=== PATIENT | female | born 1980 | race Caucasian/White ===

== ENCOUNTER 2020-11-01 18:25 | Emergency (ER) | payer BC, SELFPAY ==
--- NOTE | ~2020-11-01 | XR_ITS ---
EXAMINATION: XR chest 2V DATE: 11/01/2020 18:50 INDICATION: Cough and shortness of breath. TECHNIQUE: Frontal and lateral views of the chest were obtained. COMPARISON: None. FINDINGS: The chest demonstrates clear lungs without pneumonia, pleural effusion, or pneumothorax. Th e heart size is normal. IMPRESSION: 1. No acute cardiopulmonary disease. Reviewed, dictated and finalized at location A.
[2020-11-01 18:30] VITALS: BP 134/81; PULSE 90; RESP 20; TEMP 36.9; O2SAT 95
--- NOTE | 2020-11-01 19:12 | ED.SOB ---
HPI - SOB/Dyspnea General Chief Complaint: Shortness of Breath/Dyspnea Stated Complaint: cough Source: patient and family Mode of arrival: ambulatory Limitations: no limitations History of Present Illness HPI Narrative: started last week with URLisa sxs. Pt was seen by PCP and dx with sinus infection and given Rx for doxycycline. She sates since then it has moved to her chest. She feels mildly SOB, but really is struggling with a deep breath, because her cough is so pronounced, MD elicited complaint: shortness of breath Pertinent past history: COPD Context: recent illness Timing: constant Severity: mild Exacerbating factors: nothing and exertion Relieving factors: nothing Associated symptoms: denies other symptoms, cough, wheezing and sputum production Related Data Home oxygen amount: none Home Medications Medication Instructions Recorded Confirmed doxycycline hyclate 100 mg PO BID 11/01/20 11/01/20 duloxetine 20 mg PO BID 11/01/20 11/01/20 fluticasone propionate [Flonase] 1 spray INTRANASAL BID 11/01/20 11/01/20 montelukast 10 mg PO HS 11/01/20 11/01/20 Allergies Allergy/AdvReac Type Severity Reaction Status Date / Time erythromycin base Allergy Hives Verified 11/01/20 18:40 Penicillins Allergy Hives Verified 11/01/20 18:40 Sulfa (Sulfonamide Allergy Hives Verified 11/01/20 18:40 Antibiotics) Review of Systems Review of Systems: All systems reviewed & are unremarkable except as noted in HPI and below Constitutional: Constitutional: Reports no additional constitutional complaints Eyes: Eyes: Reports no additional eye complaints ENT: Reports system reviewed and no additional complaints, except as documented Cardiovascular: Cardiovascular: Reports no additional cardiovascular complaints Respiratory: Respiratory: Reports cough, Reports dyspnea and Reports wheezing Gastrointestinal: Gastrointestinal: Reports no additional gastrointestinal complaints Musculoskeletal: Musculoskeletal: Reports as per HPI Integumentary/Breasts: Skin/Breast: Reports as per HPI Neurologic: Reports as per HPI Psychiatric: Psychiatric: Reports as per HPI Endocrine: Endocrine: Reports as per HPI Hematologic/Lymphatic: Hematologic/Lymphatic: Reports as per HPI Allergic/Immunologic: Allergic/Immunologic: Reports as per HPI [facility] Social History Social History (Updated 11/01/20 @ 19:16 by Carie Abdalla MD) Smoking status: Current every day smoker Alcohol intake: current Substance use: never Exam Const: General: no acute distress and alert Orientation/consciousness: patient oriented x3 HENMT: Head: normal to inspection Eyes: Conjunctivae: conjunctivae normal Pupils: Equal, round and reactive pupils present Neck: Neck: normal visual inspection Chest: Chest palpation & inspection: normal inspection of the chest Resp: Effort & Inspection: normal respiratory effort Auscultation: wheezes Cardio: Rate: regular rate Rhythm: regular rhythm GI: GI Palp: Yes Soft to palpation and No Tenderness to palpation present (GI) : General: Yes no CVA tenderness Skin: General skin exam: normal color Rashes: no rashes Neuro: General: patient oriented x3 and moves all extremities Extrem: General: normal to inspection Psych: Mental Status: mental status grossly normal Affect: normal affect Course Vital Signs Vital signs: Vital Signs Temperature 36.9 C 11/01/20 18:30 Pulse Rate 90 11/01/20 18:30 Respiratory Rate 20 11/01/20 18:30 Blood Pressure 134/81 11/01/20 18:30 Pulse Oximetry 95 11/01/20 18:30 Temperature 36.9 C 11/01/20 18:30 Pulse Rate 90 11/01/20 18:30 Respiratory Rate 20 11/01/20 18:30 Blood Pressure 134/81 11/01/20 18:30 Pulse Oximetry 95 11/01/20 18:30 Discharge Plan Discharge Clinical Impression: Bronchitis Patient Disposition: Home, Self-Care Condition: Stable Instructions: Antibiotic Form, Acute Bronchitis (ED) Prescr
[2020-11-01 19:15] VITALS: RESP 16
[2020-11-01] MEDS: ALBUTEROL SULFATE (*SP) INHALER 2 PUFF INHALATION (19:16)
[2020-11-01 19:27] VITALS: BP 134/81; PULSE 87; RESP 20; TEMP 36.9; O2SAT 95
== END 2020-11-01 19:33 | disposition home or self-care (01) ==
PROVIDERS: Emergency Provider Emergency Medicine
DX: J40 Bronchitis, not specified as acute or chronic (principal)
CPT/HCPCS: 71046; 94640; 99283; A9270

== ENCOUNTER 2025-05-30 15:03 | Emergency (ER) | payer OTHER, SELFPAY ==
--- OUTSIDE RECORDS SUMMARY | 2025-01-25 04:00 | XMS_ITS ---
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 Role Phone PRITESH RASCON Primary Care Provider PALOMO Rubio Unavailable [phone] Medications Medication SIG (Take, Route, Frequency, Duration) Notes Start Date End Date Status busPIRone HCl 10 MG Oral; Duration: 30 Days Active buPROPion HCl ER (XL) 300 MG TAKE 1 TABL ET BY MOUTH ONCE DAILY IN THE MORNING Oral; Duration: 90 Days Active DULoxetine HCl 20 MG Oral; Duration: 90 Days Active Cefdinir 300 MG Oral; Duration: 10 Days Active DULoxetine HCl 60 MG Oral; Duration: 90 Days Active Nitrofurantoin Monohyd Macro 100 MG Oral; Duration: 5 Days Activ e Montelukast Sodium 10 MG Oral; Duration: 90 Days Active cloNIDine HCl 0.3 MG Oral; Duration: 90 Days Active Fluconazole 150 MG Oral; Duration: 3 Days Active Encounters Encounter Location Date Provider Diagnosis [facility] OUT[facility]IENT [address] [place] [address] 01/25/2025 PALOMO BARRIENTOS Plan Of Treatment No Information Progress Notes * BRANDEE DAVEY DDOB:1980 (45 yo F)Acc No.[id number]:01/25/2025 Patient: BRANDEE CARMEN Provider: Beau Barrientos DPM :1980 A ge:44 Y S ex:Female Date:01/25/2025 Address:[address] [place], [place] [id number] Pcp:PRITESH RASCON Subjective: * Chief Complaints: * * Medical History: * Medications: T aking Fluconazole 150 MG Tablet Oral , Taking Montelukast Sodium 10 MG Tablet Oral , Taking Nitrofurantoin Monohyd Macro 100 MG Capsule Oral , Taking cloNIDine HCl 0.3 MG Tablet Oral , Taking busPIRone HCl 10 MG Tablet Oral , Taking buPROPion HCl ER (XL) 300 MG Tablet Extended Release 24 Hour TAKE 1 TABLET BY MOUTH ONCE DAILY IN THE MORNING Oral , Taking Cefdinir 300 MG Capsule Oral , Taking DULoxetine HCl 20 MG Capsule Delayed Release Particles Oral , Taking DULoxetine HCl 60 MG Capsule Delayed Release Particles Oral Objective: * Vitals: Assessment: Plan: * Treatment: * Billing Information: * Visit Code: * Procedure Codes: * Electronic signature of LOLA BARRIENTOS DPM on 05/30/2025 at 03:05 PM CDT Sign off status: Pending * Provider: Beau Barrientos DPM Date: 0 01/25/2025 Generated for Vidal vidales/Philippe/Go on: 1 03:05 PM CDT
--- NOTE | ~2025-05-30 | CT_ITS ---
EXAMINATION: CT brain wo con COMPARISON: None HISTORY: Anterior headache, nausea x1 day. NKI TECHNIQUE: Axial images were obtained through the brain without IV contrast. CT scan performed using dose optimization techniques including the following automated exposure control; adjustment of mA and/or kV; use of iterative reconstruction technique. Automatic exposure control was used to reduce radiation dose. Permanent radiation dose record is archived to PACS. FINDINGS: No acute infarct or parenchymal hemorrhage. No abnormal mass or mass effect. No midline shift. No extra-axial fluid collections. No hydrocephalus. . Mastoid air cells unremarkable. Sinuses and orbits unremarkable. No acute fracture. No significant facial or scalp soft tissue swelling evident. No radiopaque foreign body is seen. Impression: 1.No acute intracranial abnormality. Reviewed, dictated and finalized at location P. Impression: 1.No acute intracranial abnormality.
[2025-05-30 15:05] VITALS: BP 147/99; PULSE 80; RESP 16; TEMP 36.4; O2SAT 100
--- OUTSIDE RECORDS SUMMARY | 2025-05-30 15:05 | XMS_ITS | Patient Health Record ---
Author Organization [facility] Address [address] [place] [address] Care Team Providers Care Ophthalmic Surgical Assistant Name Role Phone PRITESH RASCON Primary Care Provider PALOMO Rubio Unavailable [phone] Allergies Allergen (clinical drug ingredient) Drug/Non Drug Allergy documented on EMR Reaction Allergy Type Onset Date Status amoxicillin Amoxicillin Unknown Drug Allergy Act christine erythromycin Erythromycin Unknown Drug Allergy A ctive Penicillin Unknown Drug Allergy Active Substance with sulfonamide structure and antibacterial mechanism of action (substance) Sulfa Antibiotics Unknown Drug Allergy Active Reason For Referral No Information Medications Medication SIG (Take, Route, Frequency, Duration) Notes Start Date End Date Status Fluconazole 150 MG Oral; Duration: 3 Days Active HYDROcodone-Acetaminophen 5-325 MG 1 tablet as needed Orally every 6 hrs Dx Post Op 01/25/2025 Active DULoxetine HCl 60 MG Oral; Duration: 90 Days Active DULoxetine HCl 20 MG Oral; Duration: 90 Days Active Cefdinir 300 MG Oral; Duration: 10 Days Active buPROPion HCl ER (XL) 300 MG TAKE 1 TABLET BY MOUTH ONCE DAILY IN THE MORNING Oral; Duration: 90 Days Active busPIRone HCl 10 MG Oral; Duration: 30 Days Active cloNIDine HCl 0.3 MG Oral; Duration: 90 Days Active Nitrofurantoin Monohyd Macro 100 MG Oral; Duration: 5 Days Active Montelukast Sodium 10 MG Oral; Duration: 90 Days Active Social History Tobacco Use: Social History Observation Description Date Details (start date - stop date) Never Smoker NA - NA Tobacco Control (Standard) Question Answer Notes Tobacco use: Nonsmoker Vital Signs Heart Rate 110 /min 02/15/2025 Blood pressure diastolic 79 mm Hg 02/15/2025 Height-cm 165.1 cm 02/15/2025 Weight-kg 79.38 kg 02/15/2025 Height 65 in 02/15/2025 Blood pressure systolic 117 mm Hg 02/15/2025 Weight 175 lbs 02/15/2025 BMI 29.12 kg/m2 02/15/2025 Encounters Encounter Location Date Provider Diagnosis [facility] OUTPATIENT [id number] [place] [phone] 01/25/2025 PALOMO BARRIENTOS [facility] [address] [place] [address] 12/09/2024 PALOMO BARRIENTOS Neoplasm of unspecified behavior of bone, soft tissue, and skin D49.2 [facility] [address] [place] [address] 01/15/2025 PALOMO BARRIENTOS Neoplasm of unspecified behavior of bone, soft tissue, and skin 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 We discussed treatment options including observation, supportive care and surgical options of aspiration or excision. We informed the patient that 50% of cysts will resolve spontaneously and 50% of surgically treated ganglion will reoccur. Discussed the lesion. Discussed the lesion may be a ganglion, or more likely could be a mass such as a fibroma. Discussed treatment options. She had X-rays at [facility] which did not show anything distinct in the area. We will schedule for excision. Discussed post operative period, pt understands. 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 We discussed treatment options including observation, supportive care and surgical options of aspiration or excision. We informed the patient that 50% of cysts will resolve spontaneously and 50% of surgically treated ganglion will reoccur. Discussed the lesion. Discussed the lesion may be a ganglion, or more likely could be a mass such as a fibroma. Discussed excision. We discussed the procedure in detail, including all risks, benefits and potential complications. We discussed the perioperative and postoperative period. I answered all questions, and no guarantees were made. The patient elects to proceed with procedure. The consent was explained and signed. We discussed post operative care and dispensed instructional sheet. The patient is to call with any questions. 02/01/2025 Aftercare following surgery (ICD-10 - Z48.89) We discussed the patient's current status and their postoperative course. Signs and symptoms of infection were discussed with the patient. The patient is to contact the office immediately if they believe that they have an infection, or have any other problem or concern. Expected post-operative course explained A dry dressing was applied. The patient was instructed to leave the dressing intact. The patient was instructed to remain in their CAM boot / surgical shoe. 02/15/2025 Aftercare following surgery (ICD-10 - Z48.89) We discussed the patient's current status and their postoperative course. Signs and symptoms of infection were discussed with the patient. The patient is to contact the office immediately if they believe that they have an infection, or have any other problem or concern. Expected post-operative course explained The suture site was prepped with alcohol. The sutures were removed without incident. Steri strips and a small dressing was applied. The patient was instructed to leave the area dry for the next few days, and contact the office if they still have drainage in a week. The patient may advance to a regular shoe. They should advance their activity slowly as tolerated. Plan Of Treatment No Information Insurance Providers Payer Name Payer Address Payer Phone Subscriber Number Group Number Insured Name Patient Relationship to Insured Coverage Start Date Coverage End Date Errand Boy Delivery Business Plan [address] [place] [id number] BRANDEE DAVEY Self - patient is the insured [facility] [address] [place], [place] [id number] BRANDEE DAVEY Self - patient is the insured Medical (General) History Medical History History ICD Code anxiety
--- OUTSIDE RECORDS SUMMARY | 2025-05-30 15:05 | XMS_ITS | Encounter Summary ---
Author Organization [facility] Address [address] [place] [address] Care Team Providers Care Contact Officer Name Role Phone Ju Barragan MD Primary Care Provider Juan José Tavarez MD Unavailable [phone] Encounter Details Date Type Department Care Team ([facility] Contact Info) Description 11/17/2015 Abstract [facility] AT [address] [address] Juan José Tavarez MD [address] [place] [address] Social History Tobacco Use Types Packs/Day Years Used Date Smoking Tobacco: Former Cigarettes Q uit: 2007 Alcohol Use Standard Drinks/Week Comments Yes 6 (1 standard drink = 0.6 oz pur e alcohol) Comments Unknown Sex and Gender Information Value Date Recorded Sex Assigned at Not on file Legal Sex Female 10:09 PM CDT Gender Identity Not on file Sexual Orientation Not on file documented as of this encounter Plan of Treatment Not on file documented as of this encounter Visit Diagnoses Not on filedocumented in this encounter Additional Health Concerns Infection Onset Date Last Indicated Resolved Time COVID-19 Rule Out 08/23/2020 08/23/2020 08/24/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
--- NOTE | 2025-05-30 15:09 | ED.HA ---
HPI - Headache General Chief Complaint: Headache Stated Complaint: headache Time Seen by Provider: 05/30/25 15:09 45 years old white female came to the ED by private car complaining of frontal headache radiating to parietal area bilaterally started last night, did not get better Advil last night. Patient denies any fever, chills, nausea, vomiting. Patient report this is the worst headache in her life. Last headache was 1 week ago because of stress which was different than this 1. Patient reports headache is worse with moving and light, nothing make it better. Patient denies upper respiratory symptoms, shortness of breath, chest pain, abdominal pain or back pain. History of anxiety, depression, vitamin-D deficiency. Patient denies smoking or drinking or using drugs. Source: patient Mode of arrival: ambulatory Limitations: no limitations Related Data Home Medications ?Medication ?Instructions ?Recorded ?Confirmed ?Last Taken ?Type doxycycline hyclate 100 mg 100 mg PO BID 11/01/20 11/01/20 Unknown History tablet,delayed release duloxetine 20 mg capsule,delayed 20 mg PO BID 11/01/20 11/01/20 Unknown History release fluticasone propionate 50 1 spray intranasal BID 11/01/20 11/01/20 Unknown History mcg/actuation nasal spray,suspension montelukast 10 mg tablet 10 mg PO HS 11/01/20 11/01/20 Unknown History Allergies Allergy/AdvReac Type Severity Reaction Status Date / Time erythromycin base Allergy Hives Verified 05/30/25 15:05 Penicillins Allergy Hives Verified 05/30/25 15:05 Sulfa (Sulfonamide Allergy Hives Verified 05/30/25 15:05 Antibiotics) Review of Systems Review of Systems: All systems reviewed & are unremarkable except as noted in HPI and below PMFSH Social History Social History Smoking status: Current every day smoker Alcohol intake: current Substance use: never Exam Narrative: General appearance: Well-developed, well-nourished Skin: Normal color Head: Normocephalic, nontraumatic Eyes: Clear conjunctiva ENT: Oropharynx normal, ears normal, nose normal Neck: Supple, nontender Chest and respiratory: Airway patent, no respiratory distress, no accessory muscle use Heart: Regular rate/rhythm Abdomen: Soft, nontender, no organomegaly, quiet bowel sounds Vascular: Normal peripheral pulses, normal capillary refill. Musculoskeletal: Normal range of motion, nontender back Neurologic: Alert and oriented ?3, P[employer] is normal as tested, no gross motor deficit Course Vital Signs Vital signs: Vital Signs Temperature 36.4 C 05/30/25 15:05 Pulse Rate 80 05/30/25 15:05 Respiratory Rate 16 05/30/25 15:05 Blood Pressure 147/99 H 05/30/25 15:05 Pulse Oximetry 100 05/30/25 15:05 Oxygen Delivery Room Air 05/30/25 15:05 Temperature 36.4 C 05/30/25 15:05 Pulse Rate 80 05/30/25 15:05 Respiratory Rate 16 05/30/25 15:05 Blood Pressure 147/99 H 05/30/25 15:05 Pulse Oximetry 100 05/30/25 15:05 Oxygen Delivery Room Air 05/30/25 15:05 MDM - Headache MDM Narrative Medical decision making narrative: Patient presents with frontal headache, dull aching started last night Vital signs are stable Physical examination insignificant Differential diagnosis anxiety/stress causing headache, intracranial pathology. Blood workup today includes CBC, CMP, TSH showed no significant abnormality CT head without contrast showed no acute abnormality. In the ED patient received 1 L of normal saline, 30 mg of Toradol IV, 50 mg Benadryl IV, Reglan 10 mg IV with remarkable improvement. Diagnosis headache high likely secondary to stress/depression The pt was discharged to home.the pt,s condition upon discharge was fair,education was provided to the pt in reference to the final impression,discharge study results,treatment,prognosis and need for follow up . Differential Diagnosis Differential diagnosis: Likely tension headache, subarachnoid hemorrhage and headache Lab Data 05/30/25 15:17 05/30/25 15:17 Labs: Lab Results 05/30/25 Range/Units 15:17 WBC 4.1 L (4.8-10.8) K/mm3 RBC 4.30 (4.20-5.40) M/mm3 Hgb 13.0 (12.0-15.0) g/dL Hct 39.5 (35.0-49.0) % MCV 91.9 (78.0-102.0) fL MCH 30.2 (27.0-31.0) pg MCHC 32.9 (32-36) g/dL RDW 11.7 (11.6-14.4) % Plt Count 249 (150-420) K/mm3 MPV 10.0 (9.2-11.8) fl Immature Gran % (Auto) 0.0 (0.0-0.0) % Neut % (Auto) 60.8 (50.0-70.0) % Lymph % (Auto) 29.2 (18.0-42.0) % [place] % (Auto) 6.6 (2.0-11.0) % Eos % (Auto) 2.7 (1.0-6.0) % Baso % (Auto) 0.7 (0.0-1.0) % Lymph # (Auto) 1.19 (1.10-4.50) K/mm3 [place] # (Auto) 0.27 (0.10-0.90) K/mm3 Eos # (Auto) 0.11 (0.02-0.50) K/mm3 Baso # (Auto) 0.03 (0.00-0.10) K/mm3 Abs Immat Gran (auto) 0.00 (0.00-0.00) K/mm3 Absolute Neuts (auto) 2.47 (1.70-7.20) K/mm3 Absolute Nucleated RBC 0.00 (0.00-0.00) K/mm3 Nucleated RBC % 0.0 (0-0.0) % Sodium 143 (137-145) mmol/L Potassium 4.4 (3.4-5.0) mmol/L Chloride 106 (98-107) mmol/L Carbon Dioxide 31 H (22-30) mmol/L Anion Gap 6 (4-12) mmol/L BUN 12 (7-17) mg/dL Creatinine 0.79 (0.7-1.0) mg/dL Estim Creat Clear Calc 79 ml/min Estimated GFR > 60 (59 - ) Glucose 100 (65-110) mg/dL Calculated Osmolality 295 (285-295) mOsm/kg Calcium 9.8 (8.4-10.2) mg/dL Total Bilirubin 0.6 (0.2-1.3) mg/dL AST 23 (14-36) U/L ALT 22 (6-35) U/L Alkaline Phosphatase 81 (38-126) U/L Total Protein 7.7 (6.3-8.2) g/dL Albumin 4.5 (3.5-5.1) g/dL TSH Pending Imaging Data Radiologist's impression: Impressions Head CT 05/30/25 15:38 Impression: 1.No acute intracranial abnormality. Discharge Plan Discharge Clinical Impression: Headache Patient Disposition: Home Condition: Improved Instructions: Acute Headache (ED) Additional Instructions: Return if symptoms are worsening , call your family physician for appointment, take Tylenol, ibuprofen as as needed for aches and pain, continue home medications. Patient Language: Slovenian Prescriptions: No Action montelukast 10 mg Tablet 10 mg PO HS fluticasone propionate [Flonase] 50 mcg/actuation [place],Suspension 1 spray INTRANASAL BID duloxetine 20 mg Capsule,Delayed Release(Dr/Ec) 20 mg PO BID doxycycline hyclate 100 mg Tablet,Delayed Release (Dr/Ec) 100 mg PO BID prednisone 20 mg tablet 20 mg PO DAILY Qty: 18 0RF Rx Instructions: take 3 tabs a day for 3 days, then take 2 tabs qd for 3 days, then 1 tab qd for last 3 days albuterol sulfate 90 mcg/actuation HFA aerosol inhaler 2 puff inhalation Q4H Qty: 8.5 0RF Follow-up/Referrals: UNKNOWN,DOCTOR [Primary Care Provider]
[2025-05-30] MEDS: KETOROLAC 30 MG/ML VIAL (*BKC) IV PUSH (15:19)
[2025-05-30] MEDS: METOCLOPRAMIDE HCL INJ 10 MG/2 ML VIAL IV PUSH (15:19)
[2025-05-30] MEDS: SODIUM CHLORIDE 0.9% IV 1,000 ML 999 ML IV CONT (15:19)
[2025-05-30 15:30] VITALS: BP 130/82; PULSE 73; RESP 18; O2SAT 99
[2025-05-30 15:30] LABS: Hematocrit 39.5 % (35.0-49.0); Hemoglobin 13.0 g/dL (12.0-15.0); Immature Granulocyte Percent A 0.0 % (0.0-0.0); Lymphocytes Absolute Auto 1.19 K/mm3 (1.10-4.50); Mean Corpuscular HGB Conc 32.9 g/dL (32-36); Mean Corpuscular Hemoglobin 30.2 pg (27.0-31.0); Mean Corpuscular Volume 91.9 fL (78.0-102.0); Nucleated Red Blood Cells Absolute Auto 0.00 K/mm3 (0.00-0.00); Nucleated Red Blood Cells Perc 0.0 % (0-0.0); Platelet Count Result 249 K/mm3 (150-420); Red Blood Count 4.30 M/mm3 (4.20-5.40); White Blood Count 4.1 K/mm3 (4.8-10.8)
[2025-05-30 15:37] LABS: Alanine Aminotransferase 22 U/L (6-35); Albumin Level 4.5 g/dL (3.5-5.1); Alkaline Phosphatase 81 U/L (38-126); Anion Gap 6 mmol/L (4-12); Aspartate Amino Transferase 23 U/L (14-36); Bilirubin,Total 0.6 mg/dL (0.2-1.3); Blood Urea Nitrogen 12 mg/dL (7-17); Calcium 9.8 mg/dL (8.4-10.2); Carbon Dioxide 31 mmol/L (22-30); Chloride 106 mmol/L (98-107); Estimated CRCL calculation 79 ml/min; Estimated Glomerular Filt Rate > 60; Glucose 100 mg/dL (65-110); Osmolality Calculated 295 mOsm/kg (285-295); Potassium 4.4 mmol/L (3.4-5.0); Sodium 143 mmol/L (137-145); Total Protein 7.7 g/dL (6.3-8.2)
[2025-05-30 16:00] VITALS: BP 107/82; PULSE 87; RESP 18; O2SAT 97
[2025-05-30 16:08] LABS: Thyroid Stimulating Hormone 0.453 uIU/mL (0.465-4.680)
[2025-05-30 16:29] VITALS: BP 121/71; PULSE 84; RESP 18; TEMP 36.6; O2SAT 100
== END 2025-05-30 16:29 | disposition home or self-care (01) ==
LOC: CHSED 15:57
PROVIDERS: Emergency Provider Emergency Medicine
DX: R51.9 Headache, unspecified (principal); F17.200 Nicotine dependence, unspecified, uncomplicated
CPT/HCPCS: 36415; 70450; 80053; 84443; 85025; 96361; 96374; 96375; 99284; J1200; J1885; J2765; J7030